=== PATIENT | female | born 1975 | race Caucasian/White ===

== ENCOUNTER 2020-09-04 12:36 | Outpatient (CLI) | payer OTHER, SELFPAY ==
--- NOTE | 2020-09-04 | DI.US_ITS ---
EXAM: US PELVIS TRANSVAGINAL CLINICAL HISTORY: MIRENA IUD PLACEMENT 2013, UNABLE TO FIND STRINGS, CHECK IUD TECHNIQUE: Pelvic ultrasound was performed utilizing transabdominal and transvaginal scanning. COMPARISON: No exams were available for comparison FINDINGS: The uterus measures 7.4 x 4.8 x 5.4 cm in the in diameter. There is an IUD in place in the uterine f undus. No direct measurement endometrial stripe obtained. The left ovary is nonvisualized. Right ovary measures 24 x 20 x 24 millimeters in diameter and has a normal follicular appearance. No free fluid identified in the cul-de-sac. Limited scanning of the kidneys is unremarkable. IMPRESSION: IUD in place in the endometrial cavity. No significant abnormal findings. Left ovary nonvisualized. RADIATION DOSE DELIVERED: Total DLP
== END 2020-09-04 12:56 ==
PROVIDERS: Visit Provider Nurse Practitioner
DX: T83.32XA Displacement of intrauterine contraceptive device, initial encounter (principal)
CPT/HCPCS: 76830; 76856

== ENCOUNTER 2022-07-27 17:41 | Outpatient (REF) | payer OTHER, SELFPAY ==
[2022-07-27 21:37] LABS: Abs Immature Grans 0.01 10^3/uL (0.0-0.06); Absolute Basophil Count 0.04 10^3/uL (0.0-0.2); Absolute Eosinophil Count 0.12 10^3/uL (0.0-0.7); Absolute Lymphocyte Count 3.12 10^3/uL (1.2-3.4); Absolute Monocyte Count 0.58 10^3/uL (0.1-0.8); Absolute Neutrophil Count 4.04 10^3/uL (1.2-6.7); Basophils % 0.5; Eosinophils % 1.5; HCT 40.8 % (36.0-46.0); HGB 13.7 g/dL (11.2-15.7); Immature Grans % 0.1; Lymphocytes % 39.4; MCH 30.7 pg (27.0-33.0); MCHC 33.6 % (32.0-36.0); MCV 92 fL (80-95); MPV 10.8 fL (8.0-11.0); Monocytes % 7.3; Neutrophils % 51.2; Platelet Count 289 10^3/uL (130-400); RBC 4.46 10^6/uL (3.93-5.22); RDW 12.6 % (11.7-14.6); RDW-SD 42.6 fL; WBC 7.91 10^3/uL (4.4-10.8)
[2022-07-27 22:24] LABS: ALT 22 U/L (14-59); AST 23 U/L (15-37); Albumin 3.5 g/dL (3.4-5.0); Alkaline Phosphatase 84 U/L (46-116); Anion Gap 5.7 mmol/L (3-11); BUN 15 mg/dL (7-18); Bilirubin, Total 0.2 mg/dL (0.2-1.0); CO2 27.3 mmol/L (21.0-32.0); CREATININE 0.6 mg/dL (0.55-1.02); Calcium 8.8 mg/dL (8.5-10.1); Calculated LDL 112 mg/dL (<100); Chloride 106 mmol/L (98-107); Cholesterol 188 mg/dL (<200); Estimated GFR 112.04 (mL/min/1.73m2); Glucose 97 mg/dL (74-106); HDL Cholesterol 66 mg/dL (40-60); Potassium 3.9 mmol/L (3.5-5.1); Sodium 139 mmol/L (136-145); TSH (W/Ref FT4) 1.38 uIU/mL (0.36-3.74); Total Protein 7.1 g/dL (6.4-8.2); Triglyceride 52 mg/dL (<150)
[2022-07-27 22:41] LABS: Hemoglobin A1C 4.9 % (<5.7)
== END 2022-07-27 17:42 | disposition home or self-care (01) ==
LOC: NCHCN 17:41
PROVIDERS: Visit Provider Nurse Practitioner Family
DX: Z00.00 Encounter for general adult medical examination without abnormal findings (principal); Z13.29 Encounter for screening for other suspected endocrine disorder; Z13.0 Encounter for screening for diseases of the blood and blood-forming organs and certain disorders involving the immune mechanism; Z13.220 Encounter for screening for lipoid disorders; Z13.228 Encounter for screening for other metabolic disorders; Z13.1 Encounter for screening for diabetes mellitus
CPT/HCPCS: 80053; 80061; 83036; 84443; 85025

== ENCOUNTER 2023-03-22 03:45 | Outpatient (CLI) | payer OTHER, SELFPAY ==
--- NOTE | 2023-03-22 | DI.MAMMO_ITS ---
Exam(s) MAMMO SCREENING EXAM: MAMMO SCREENING CLINICAL HISTORY: SCREENING MAMMO FOR BREAST CANCER Z12.31 TECHNIQUE: Bilateral full field digital CC and MLO mammographic images were obtained with 3D tomosyn thesis and utilizing computer aided detection (CAD). COMPARISON: There are no priors for comparison. FINDINGS: Masses/Architectural Distortion: None seen. Status post bilateral breast reduction Microcalcifications: No suspicious pleomorphic-type are seen. There is a large benign type coarse isabel cification in the right breast. Skin Thickening/Nipple Retraction: None. IMPRESSION: 1. No significant interval change with no specific features of malignancy noted. 2. Unless there is more urgent need, screening mammography is recommended, as per [employer] guidelines. BI-RADS Category 1 - Negative Breast Density - Category A - Almost entirely fatty Breast density category C or D implies that the patient has dense breast tissue. Dense breast tissue is very common and is not abnormal but dense breast tissue can make it harder to find cancer on a ma mmogram. Also, dense breast tissue may increase their breast cancer risk. This information about the result of the mammogram report was provided to the patient to raise their awareness. Use this report when you speak with the patient about their risks for breast cancer, which includes their family hist ory. At that time, you may recommend for more screening tests (Ultrasound or MRI) as they might be us eful based on their risk. A negative radiographic report should not delay biopsy if a dominant or clinically suspicious mass is present. Up to ten percent of cancers are not identified on mammography. A negative report may reinforce clinical impression. Adenosis and dense breasts may obscure an underlying neoplasm. False positive reports average 6 to 10%. Patient will receive a letter notifying them of these results.
== END 2023-03-22 04:05 ==
PROVIDERS: Visit Provider Nurse Practitioner Family
DX: Z12.31 Encounter for screening mammogram for malignant neoplasm of breast (principal)
CPT/HCPCS: 77063; 77067

== ENCOUNTER 2023-03-29 08:38 | Emergency (ER) | payer OTHER, SELFPAY ==
[2023-03-29 08:41] VITALS: BP 153/83; PULSE 88; RESP 16; TEMP 36.9; O2SAT 98
--- NOTE | 2023-03-29 08:57 | W.ED.GENAD ---
Discharge Plan Disposition Patient Disposition: Home Condition: Stable Discharge Details Clinical Impression: Exposure to bat without known bite, Need for rabies vaccination Primary Care Provider: Unknown,Unknown ED Provider: Rajinder Sim Home Meds and New Rx's Prescriptions: Continued valacyclovir 500 mg tablet 500 mg PO DAILY multivitamin with iron [Daily Multiple Vitamins/Iron] Tablet 1 tab PO DAILY Kyleena 17.5 mcg/24 hrs (5 yrs) 19.5 mg intrauterine device 1 device intrauterine ONCE Rx Instructions: as a single dose Vyvanse 30 mg Capsule 30 mg PO DAILY Discontinued dextroamphetamine-amphetamine [Adderall] 5 mg tablet 5 mg PO DAILY Patient Comments: no longer taking 03/29/23 Discharge Instructions Instructions: Rabies Vaccine (By injection), Rabies Immune Globulin (By injection) Additional Instructions: Please return to the hospital for repeat vaccination on 04/01/2023, 04/05/2023, and 04/12/2023 Medical Decision Making 47yo female here with concern for bat scratch. No obvious break in skin. Will treat prophylactically for rabies. Patient provided informed consent to treat. Outpatient followup orders for rabies vaccination ordered to expedite care. HPI General Mode of arrival: ambulatory. Date/Time Provider Initiated Documentation: 03/29/23 08:50. Limitations to Documentation: no limitations. Information obtained by: patient. HPI Narrative: 47yo female here with concern for bat scratch. Patient notes that bat was in her house this am and attached to her left ankle around 6:30a. No known bite. Related Data Home Medications Medication Instructions Recorded Confirmed multivitamin with iron (Daily 1 tab PO DAILY 11/01/20 03/29/23 Multiple Vitamins with Iron tablet) valacyclovir 500 mg tablet 500 mg PO DAILY 11/01/20 03/29/23 levonorgestrel 17.5 mcg/24 hrs 1 device intrauterine ONCE 08/04/22 03/29/23 (5yrs) 19.5mg intrauterine device (Kyleena) lisdexamfetamine 30 mg capsule 30 mg PO DAILY 03/29/23 03/29/23 (Vyvanse) Allergies Allergy/AdvReac Type Severity Reaction Status Date / Time sertraline Allergy Unknown Verified 08/04/22 08:32 adhesive AdvReac Itching Unverified 03/29/23 08:44 General Stated Complaint: AnimalBite YOLI: 3 Review of Systems Narrative: as per hpi PFSH All Active Problems Exposure to bat without known bite (Acute) Need for rabies vaccination (Acute) Screening for colon cancer (Acute) Obesity (Chronic) Depression (Chronic) ADHD (Acute) History of eating disorder (Acute) Treated for bulimia with excellent results. History of endometritis (Acute) Hx of menorrhagia with Mirena IUD in place. 09/2020 EMBx:endometritis. Rx with Abx. IUD (intrauterine device) in place (Acute) 10/2020. Mirena removed. New Mirena placed. Surgical History H/O breast surgery History of appendectomy Family History Mother , Acute myeloid leukemia No problems noted. Other Heart disease Hyperlipidemia Hypertension Social History Smoking/Tobacco Use Status: Never Smoking risk assessment performed?: Yes Alcohol Intake: current Alcohol Intake frequency: holidays/special occasions only Drug use: Occasionally Substance use type: marijuana Details: edible marijuana 1-2 times a month. 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 What is your relationship status?: living with partner Panel score (0-1 are the most socially isolated patients): 1 Do you feel safe at home: Yes Do you feel safe in your relationship?: Yes Female Reproductive History Menstrual control method: progestin IUCD History History 1 Para 1 Hx # Term Pregnancies Multiple births Hx # Pregnancies Ectopic pregnancies AB induced Hx Number of Living Children 1 AB spontaneous Exam Const General: cooperative and no acute distress Skin General skin exam: no rashes or lesions noted Other: no visible break in skin left ankle Course Vital Signs Vital signs: Vital Signs Temperature 36.9 C 03/29/23 08:41 Pulse 88 03/29/23 08:41 Respiratory Rate 16 03/29/23 08:41 Blood Pressure 153/83 H 03/29/23 08:41 Pulse Oximetry 98 03/29/23 08:41 Temperature 36.9 C 03/29/23 08:41 Temperature Source Skin 03/29/23 08:41 Pulse 88 03/29/23 08:41 Respiratory Rate 16 03/29/23 08:41 Respiratory Effort Normal, Non-Labored 03/29/23 08:46 Blood Pressure 153/83 H 03/29/23 08:41 Blood Pressure Position Sitting 03/29/23 08:41 Pulse Oximetry 98 03/29/23 08:41 Oxygen Delivery Method Room Air 03/29/23 08:41 Oxygen Flow Rate 0 03/29/23 08:41 Pain Level 0 03/29/23 08:41
--- NOTE | 2023-03-29 09:07 | NUR.NOTE ---
Nursing Note: Animal bite report form faxed to [facility]. Message left for [place] health officer regarding report. Future rabies vaccination orders have been faxed to the Infusion dept.
[2023-03-29] MEDS: Rabies Immune Globulin 1,500 UNIT/5 ML VIAL 2086.52 UNITS IM (09:36)
[2023-03-29 09:51] VITALS: BP 138/91; PULSE 75; RESP 18; O2SAT 98
== END 2023-03-29 09:55 | disposition home or self-care (01) ==
PROVIDERS: Emergency Provider Student in an Organized Health Care Education/Training Program
DX: Z20.3 Contact with and (suspected) exposure to rabies (principal)
CPT/HCPCS: 90471; 96372; 99284; 90675

== ENCOUNTER 2023-04-05 01:57 | Outpatient (RCR) | payer OTHER, SELFPAY | END 2023-04-05 23:59 | disposition home or self-care (01) | LOC: INF 01:57 | PROVIDERS: PCP Nurse Practitioner Family; Visit Provider Student in an Organized Health Care Education/Training Program | DX: Z20.3 Contact with and (suspected) exposure to rabies (principal) | CPT/HCPCS: 90471; 96372; 90675 ==

== ENCOUNTER 2023-04-12 02:24 | Outpatient (RCR) | payer OTHER, SELFPAY | END 2023-05-06 23:59 | disposition home or self-care (01) | LOC: INF 02:24 | PROVIDERS: PCP Nurse Practitioner Family; Visit Provider Student in an Organized Health Care Education/Training Program | DX: Z29.14 Encounter for prophylactic rabies immune globulin (principal) | CPT/HCPCS: 96372; 90675 ==

== ENCOUNTER 2023-05-21 06:06 | Day surgery (SDC) | payer OTHER, SELFPAY ==
--- NOTE | 2023-05-20 22:18 | HPE_ITS ---
Date of service: 05/21/23 Time of Service: 07:33 Assessment and Plan Assessment and plan (1) History of endometritis: Status: Acute (2) History of eating disorder: Status: Acute (3) ADHD: Status: Acute (4) Depression: Status: Chronic (5) Obesity: Status: Chronic (6) Screening for colon cancer: Status: Acute Assessment and plan: Informed consent is obtained for the procedural (explained in simple layman's terms that the pt. and/or family could understand) explaining risks vs benefits and alternatives to the procedure and consequences if we do not do the procedure and need/rational for the procedure. Risks include but are not limited to: bleeding, infection, perforation of esophagus, stomach, colon, small intestines. This would necessitate emergency surgery to repair the damage w/ possible ostomy; and other associated complications w/ the required surgery. Also complications of anesthesia including aspiration, NC/CVA/. History of Present Illness Narrative: Office note This 05/21/23 Patient is here today for colonoscopy for colorectal cancer screening.??? They completed a bowel prep with just a clear yellow residual effluent.? They not having any chest pain or shortness of breath, currently.? They are not experiencing any fever or chills.? They deny any productive cough or upper respiratory tract infection signs or symptoms.? They are not having abdominal pain, or nausea and vomiting.? They have not had any changes in medications, past medical history or past surgical history since previously being seen in the office. They have not had any accidents or have been in the ER since the clinic pre-operative evaluation. ??I reviewed the procedure with the patient today, including risks and benefits of the procedure, and what they could expect at home for recovery.? All questions are answered to the patient?s satisfaction today, and they are stable to proceed with the proposed procedure. Office visit 04/01/2023: (1) Encounter for screening colonoscopy: The patient is here for Colonoscopy pre-op.? She denies having any family history of colon cancer. She has not had any bowel habit changes. -Discussed colonoscopy bowel prep as well as the procedure. Discussed possible complications of the procedure to include bleeding, pain, perforation, missed small lesion/polyp, sore throat, aspiration and adverse reaction to the medications. Questions were answered to patient?s satisfaction. No guarantees were implied or given.? Anesthesia: general (without airway) Previous surgical intolerances: None Previous surgical complications: None Pulmonary risk factors:? None PFT's: None Planned procedure: Yes Sleep apnea risks: No Can climb one flight of stairs (12-13 steps) in less than 30 seconds without stopping and without symptoms: Yes The surgery proposed for this patient is: Low risk Active cardiac conditions: None ECHO: None Stress Test: None Active risk factors: None ASA (acetylsalicylic acid):No Beta blockers: No Anti-coagulation:? N/A Medications to be held: N/A Patient is currently receiving rabies vaccinations following possible that late.? This will need to be completed prior to proceeding with screening colonoscopy.? We will schedule her colonoscopy for at least 1 month after her last vaccination. It was 47 y/o female with history of ADHD, depression and obesity presents for colonoscopy screening pre-op. She denies a family history of colon cancer. She denies any changes in bowel habits including bloody or black tarry stools, abdominal pain, diarrhea or constipation. She denies constitutional symptoms.? She denies chest pain, palpitations, dyspnea or dyspnea with exertion. She denies prior history or family history of adverse reactions or complications with anesthesia. The patient denies any history of stroke, NC, seizures, bleeding or clotting disorders. She denies having any implanted metal in her body. 70 Review of Systems All systems reviewed & are unremarkable except as noted in HPI and below PFSH All Active Problems Screening for malignant neoplasm of colon performed (Acute) IUD (intrauterine device) in place (Acute) 10/2020. Mirena removed. New Mirena placed. History of endometritis (Acute) Hx of menorrhagia with Mirena IUD in place. 09/2020 EMBx:endometritis. Rx with Abx. History of eating disorder (Acute) Treated for bulimia with excellent results. ADHD (Acute) Depression (Chronic) Obesity (Chronic) Screening for colon cancer (Acute) Medical History History of cold sores Surgical History H/O breast surgery History of appendectomy Hx of eye surgery Per pt. statesshe has muscle realignment surgery in 1988 Family History Mother , Acute myeloid leukemia No problems noted. Other Heart disease Hyperlipidemia Hypertension Social History Smoking/Tobacco Use Status: Never Smoking risk assessment performed?: Yes Alcohol Intake: current Alcohol Intake frequency: holidays/special occasions only Drug use: Occasionally Substance use type: marijuana Details: edible marijuana 1-2 times a month. 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 What is your relationship status?: living with partner Panel score (0-1 are the most socially isolated patients): 1 Do you feel safe at home: Yes Do you feel safe in your relationship?: Yes Female Reproductive History Menstrual control method: progestin IUCD History History 1 Para 1 Hx # Term Pregnancies Multiple births Hx # Pregnancies Ectopic pregnancies AB induced Hx Number of Living Children 1 AB spontaneous Meds Allergies and Home Medications Allergies Allergy/AdvReac Type Severity Reaction Status Date / Time sertraline Allergy Unknown Manic state Verified 05/21/23 07:29 adhesive AdvReac Intermediate Itching Verified 05/21/23 06:31 Home Medications Medication Instructions Recorded Confirmed Type multivitamin with iron (Daily 1 tab PO DAILY 11/01/20 05/21/23 History Multiple Vitamins with Iron tablet) valacyclovir 500 mg tablet 500 mg PO DAILY 11/01/20 05/21/23 History levonorgestrel 17.5 mcg/24 hrs 1 device intrauterine ONCE 08/04/22 05/19/23 History (5yrs) 19.5mg intrauterine device (Kyleena) lisdexamfetamine 30 mg capsule 30 mg PO DAILY 03/29/23 05/21/23 History (Vyvanse) acetylcysteine 600 mg capsule (NAC) 1,200 mg PO BID 05/19/23 05/21/23 History Exam Narrative Exam Narrative: PHYSICAL EXAM GENERAL APPEARANCE: Alert, healthy appearance, oriented, x 3,? in no acute distress HYDRATION: Well hydrated HEAD, EYES, EARS, NECK, THROAT: Head is normocephalic, pupils equal, round, reactive to light and accommodation, ocular movement intact, sclera clear and no jaundice. ?Dentition intact. LUNGS: normal respiration/normal chest excursion. ?Clear to auscultation bilaterally. ?No wheeze. ?HEART: Regular rate and rhythm. no murmurs ABDOMEN: soft and non-tender to palpation.? Normal bowel sounds.? Time Spent Time spent with Patient: <40 minutes Time was spent: preparing to see the patient(eg.review tests), obtaining and/or reviewing separately otained hiistory, ordering medications,tests, procedures, referring, communicating with other health long term care administrator, indepentently interpreting results, counseling the patient and care coordination
--- NOTE | 2023-05-20 22:25 | W.COLOREPORT ---
Date of service: 05/21/23 Time of Service: 08:51 Colonoscopy Report Date of procedure: 05/21/23 Pre-op diagnosis general: Colorectal cancer screening Post-op diagnosis procedure note: other (Minor diverticula and large polyp.) Surgeon: Michelle Rodriguez Anesthesia Type: General:No Airway Estimated blood loss (mL): 1 Pathology: other Complications: None Disposition: same day Prep: Miralax/Dulcolax Retraction Time: 9 Procedure Description: After informed consent was obtained the patient was taken to the procedure room and placed in a left decubitous position. Monitors were applied and a time out was done. The patients name, date of , procedure, allergies to medications and metal in their body was reviewed. The patient was then sedated. Once sedated and comfortable a rectal exam was done. External exam was normal. Internal exam revealed a normal sphincter tone and no palpable masses. The scope was then introduced and retrofelexed. No without internal hemorrhoids were identified. The scope was then advanced to the cecum BBPS 3 in all segments for a total of 9 difficulty. The TI and appendiceal orifice were identified. The prep was . The scope was then slowly retracted over 9 minutes back into the rectum. Polyps were removed at she had a 1 cm pedunculated polyp at 30 cm. This is removed with a cold snare. A clip was placed across the defect. She has minor diverticula confined to the sigmoid colon. There are very few small mouth diverticula. There are no signs of active bleeding or infection. The mucosa is pink and healthy with a normal vascular pattern. The scope was removed and the patient was woken up and taken back to Same day surgery in stable condition. The patient tolerated the procedure well and there were no immediate complications. Follow up: The patient should follow up in 3 years path pending, unless they develop changes in bowel habits or other new gastrointestinal complaints.
--- NOTE | 2023-05-20 22:26 | PDOC.DSDIS_ITS ---
Date of service: 05/21/23 Time of Service: 08:18 Discharge Plan Disposition Patient Disposition: Home Condition: Good Discharge Details Reason For Visit: Colon cancer screening Attending Provider: Michelle Rodriguez Primary Care Provider: Pertona Kingsley Home Meds and New Rx's Prescriptions: Continued valacyclovir 500 mg tablet 500 mg PO DAILY multivitamin with iron [Daily Multiple Vitamins/Iron] Tablet 1 tab PO DAILY Kyleena 17.5 mcg/24 hrs (5 yrs) 19.5 mg intrauterine device 1 device intrauterine ONCE Rx Instructions: as a single dose lisdexamfetamine [Vyvanse] 30 mg Capsule 30 mg PO DAILY acetylcysteine [NAC] 600 mg capsule 1,200 mg PO BID Patient Comments: TAKE 2 CAPSULES BY MOUTH EVERY MORNING AND 2 CAPSULES IN THE AFTERNOON/EARLY EVENING NEEDED FOR MOOD Discontinued bisacodyl 5 mg tablet,delayed release (DR/EC) 5 mg PO ONCE Qty: 4 0RF Rx Instructions: Per Colonoscopy bowel prep instructions polyethylene glycol 3350 17 gram/dose powder 238 g PO ONCE Qty: 238 0RF Rx Instructions: For Colonoscopy bowel prep, as directed by office Discharge Instructions Additional Instructions: DSU Colonoscopy Post- Op Instructions Instructions for Everyone who is given Anesthesia: For your safety, please do the following for the next twenty-four (24) hours: *Do Not operate a motor vehicle (car, truck, motorcycle, etc.) *Do Not drink alcoholic beverages or use any recreational drugs for the first 24 hours or while taking pain medications. The medications in your body may have a reaction that can be dangerous. *Do Not make any important decisions or sign any important papers. Findings: large colon polyps minor diverticula-make sure you are moving your bowels on a regular basis and not straining to go to the bathroom. If you find that you are having issues with constipation or irregularity, recommend you start a fiber supplement. Follow up: my office will send a letter in 2-3 wks time. My most likely repeat in 3 yrs 1. No lifting over 20 pounds or strenuous activity for the first 24 hours after your procedure. After 24 hours there are no restrictions on your activity but you may feel fatigued for a few days. 2. After you arrive home you may have a light meal and return to your normal diet as you can tolerate it without feeling sick to your stomach. 3. You may have a bloated, gaseous feeling in your belly (abdomen) after a colonoscopy. Passing gas and belching will help. Walking or lying down on your left side with your knees flexed may relieve the discomfort. Call the office at [phone] (Office) or [phone] (Hospital) right away if you notice any of the following: a.Vomiting of blood or ?coffee ground stools?. b.Rectal bleeding 1Tbsp, blood clots or continuous bleeding. c.Severe belly (abdominal) pain. d.A hard distended belly (abdomen) and an inability to pass gas. 4. Please don?t expect to have a normal BM (bowel movement) for 2-3 days after your procedure. 5. If there are questions regarding the findings of your procedure, please contact your doctor 6. If you are unable to contact your doctor with a problem, contact the hospital at [phone]. 7. Continue all your regular medications unless directed otherwise. I understand the above instructions and have no questions. Signature of Patient or Adult Escort Name of Responsible Adult Escort Signature of Nurse Date/Time Activity:: See above Diet:: See above Discharge Orders Discharge Orders: Discharge Order (Routine); Ordered 05/21/23 Ordered By: Michelle Rodriguez DS: Diagnosis Discharge Diagnosis (1) History of endometritis: Status: Acute (2) History of eating disorder: Status: Acute (3) ADHD: Status: Acute (4) Depression: Status: Chronic (5) Obesity: Status: Chronic (6) Screening for colon cancer: Status: Acute (7) Screening for malignant neoplasm of colon performed: Status: Acute Asessment and Plan: [facility] Note/Eval The patient is seen and examined after their colonoscopy.? The patient has been able to pass gas.? They are not having abdominal pain.? They have been able to tolerate liquids and a snack.? They do not have any nausea or vomiting.? They are not having any chest pain or shortness of breath.??? They are not having any rectal bleeding. Their vital signs have been stable-see nursing notes. We discussed findings during their colonoscopy, and any biopsies that were done/polyps that were removed. The patient will be sent a letter with any biopsy results, and when to repeat the colonoscopy.-see discharge instructions. Patient was given explicit instructions to follow-up regarding colonoscopy-refer to discharge instructions.? We reviewed resumption of medications. Patient verbalized understanding and discharged in stable and satisfactory condition- See nursing notes. (8) Adenomatous polyps: Status: Acute
[2023-05-21 06:25] VITALS: BP 124/80; PULSE 78; RESP 17; TEMP 36.6; O2SAT 95
[2023-05-21] MEDS: Lactated Ringers 1,000 ML 80 ML IV (06:41)
--- NOTE | 2023-05-21 06:57 | W.ANESPRE ---
General Info Date of Service Date Performed: 05/21/23 Height: 5 ft 7 in Weight: 105.3 kg Body Mass Index (BMI): 36.3 Surgical Procedure: Operation Date: 05/21/23 07:35 Proposed Procedure Side Surgeon birdie Rodriguez, DO Meds Allergies and Home Medications Allergies Allergy/AdvReac Type Severity Reaction Status Date / Time sertraline Allergy Unknown Verified 05/21/23 06:31 adhesive AdvReac Intermediate Itching Verified 05/21/23 06:31 Home Medication Medication Instructions Recorded multivitamin with iron (Daily 1 tab PO DAILY 11/01/20 Multiple Vitamins with Iron tablet) valacyclovir 500 mg tablet 500 mg PO DAILY 11/01/20 levonorgestrel 17.5 mcg/24 hrs 1 device intrauterine ONCE 08/04/22 (5yrs) 19.5mg intrauterine device (Kyleena) lisdexamfetamine 30 mg capsule 30 mg PO DAILY 03/29/23 (Vyvanse) acetylcysteine 600 mg capsule (NAC) 1,200 mg PO BID 05/19/23 Current Visit Medications: Current Medications Generic Name Dose Route Start Last Admin Trade Name Freq PRN Reason Stop Dose Admin Hyoscyamine Sulfate 0.125 mg 05/21/23 09:26 Hyoscyamine 0.125 Mg Sl/Oral/Chew SL 06/20/23 09:25 DIRECTED PRN Ringer's Solution 1,000 mls @ 80 mls/hr 05/21/23 06:00 05/21/23 06:41 IV 05/21/23 23:59 80 mls/hr INFUSION JUAN MANUEL Administration IV Miscellaneous Supplies 1 each 05/21/23 06:00 Iv Access IV 05/21/23 23:59 DIRECTED JUAN MANUEL Ondansetron HCl 4 mg 05/21/23 09:26 Ondansetron 4 Mg/2 Ml Vial IVP 06/20/23 09:25 Q4H PRN PRN Nausea / Vomiting Sodium Chloride 0 ml 05/21/23 06:00 Normal Saline Flush 10 Ml Syr IV 05/21/23 23:59 PRN PRN Sodium Chloride 0 ml 05/21/23 06:00 Normal Saline 10 Ml Vial IJ 05/21/23 23:59 DIRECTED PRN Sterile Water 0 ml 05/21/23 06:00 Water,Injection,Sterile 10 Ml Vial IJ 05/21/23 23:59 DIRECTED PRN PFSH Active Problems Active Problems: Problem Status Onset Code Screening for malignant neoplasm of colon performed Z12.11 IUD (intrauterine device) in place Z97.5 History of endometritis Z87.42 History of eating disorder Z86.59 ADHD F90.9 Depression F32.A Obesity E66.9 Screening for colon cancer Z12.11 Medical History Medical History History of cold sores Surgical History Surgical History H/O breast surgery History of appendectomy Hx of eye surgery Per pt. jacinto has muscle realignment surgery in 1988 Tobacco Smoking/Tobacco Use Status: Never Alcohol Alcohol Intake: current Alcohol intake frequency: holidays/special occasions only Substance Use Substance use: Occasionally Substance use type: marijuana Details: edible marijuana 1-2 times a month. pt used last time -last week Prental History History 1 Para 1 Hx # Term Pregnancies Multiple births Hx # Pregnancies Ectopic pregnancies AB induced Hx Number of Living Children 1 AB spontaneous Vital Signs and Lab Results Vital Signs Most Recent Vital Signs in EMR: Most Recent Vital Signs Temp Pulse Resp BP Pulse Ox 36.6 C 78 17 124/80 95 05/21/23 06:25 05/21/23 06:25 05/21/23 06:25 05/21/23 06:25 05/21/23 06:25 Point of Care Results Point of Care Results: POC- Test(urine) Negative 05/21/23 06:33 Lab Results Blood Type / Crossmatch: No Data to Display Complete Blood Count: No Data to Display Complete Metabolic Panel: No Data to Display Liver Function Panel: No Data to Display Coagulation Panel: No Data to Display Cardiac Panel: No Data to Display Arterial Blood Gas: No Data to Display Venous Blood Gas: No Data to Display Pancreas Panel: No Data to Display Thyroid Panel: No Data to Display Infectious Disease: No Data to Display Blood Cultures: No Data to Display Toxicology Panel: No Data to Display Panel: No Data to Display Anesthesia Assessment and Plan Anesthesia History Personal History: No History of Anesthesia Complications Family History: No Family History of Anesthesia Complications Exercise Tolerance Exercise Tolerance: Metabolic Equivalents<4 Pertinent Negatives Pertinent Negatives: No Symptoms of GERD Cardiac & Pulmonary Exam Cardiac Exam: Normal S1/S2 Heart Sounds Pulmonary Exam: Clear Bilateral Breath Sounds Implantable Cardiac Device Does patient have a Pacemaker or an ICD?: No Airway Exam Known Difficult Airway: No Mallampati Class: 2 Mouth Opening: Normal (> 3cm) Thyromental Distance: Greater than 3 cm Neck Range of Motion: Full ROM Neck Circumference: Normal Teeth Condition: Normal Dentition ASA Classification ASA Score: ASA 2 Emergency Case?: No NPO Status NPO Status: NPO Clears >2 hours, Solids >8 hours Status Status: Not Relevant due to Medical History Anesthesia Plan Resuscitation Status: Full Code Anesthesia Technique: General Anesthesia Airway Planned: Natural Airway Monitors Used: Standard Monitors
[2023-05-21 06:58] VITALS: BMI 36.3
--- NOTE | 2023-05-21 07:50 | BOWEL_PTH ---
PATIENT: Juli Sandoval LOC: [facility] U#:[id number] AGE/SX: 47/F ROOM: RE05/21/[address]: Michelle Rodriguez : 1975 BED: DIS: 05/21/2023 SPEC #: [id number] RECD: 05/21/23 12:36 STATUS: [facility] #: [id number] ZEN: 05/21/23 07:[address]: Michelle Rodriguez DEPT: Surgical Specimen RECD BY: Jinny Rodgers ENTERED: 05/21/23 12:37 SP TYPE: Bowel OTHR DR: Petrona Kingsley Tissues: 1 - BIOPSY BOWEL Procedures: GROSS AND MICRO LEVEL 4 Comments: [id number]
[2023-05-21 08:05] VITALS: BP 116/76; PULSE 76; RESP 22; TEMP 36; O2SAT 98
[2023-05-21 08:35] VITALS: BP 126/77; PULSE 55; RESP 18; TEMP 36.1; O2SAT 100
--- NOTE | 2023-05-21 08:58 | W.ANESPOSTOP ---
Postoperative Evaluation Date, Time and Location Date Performed: 05/21/23 Time Performed: 08:58 Patient Location: Day Surgery Unit Vital Signs Most Recent Imported Vital Signs: Most Recent Vital Signs Temp Pulse Resp BP Pulse Ox 36.1 C L 55 L 18 126/77 100 05/21/23 08:35 05/21/23 08:35 05/21/23 08:35 05/21/23 08:35 05/21/23 08:35 Pain Score Most Recent Pain Score: Most Recent Pain Score Pain Level 0 05/21/23 08:35 Assessment Mental Status: Awake (Alert & Oriented to Patient Baseline) Airway and Respiratory Function: Patent airway with normal (patient baseline) respiratory exam Cardiovascular Function: Hemodynamically Stable Hydration Status: Adequately Hydrated Nausea & Vomiting: No Nausea or Vomiting Pain: Pt. Denies Any Pain Peripheral Nerve Block: Patient did not receive a nerve block
== END 2023-05-21 10:10 | disposition home or self-care (01) ==
PROVIDERS: PCP Nurse Practitioner Family; Visit Provider Surgery
PROC: 0DJD8ZZ Inspection of Lower Intestinal Tract, Via Natural or Artificial Opening Endoscopic (ICD-10-PCS; CPT 45378; principal; 2023-05-21 07:30)
DX: Z12.11 Encounter for screening for malignant neoplasm of colon (principal); D37.4 Neoplasm of uncertain behavior of colon; K57.30 Diverticulosis of large intestine without perforation or abscess without bleeding; E66.9 Obesity, unspecified; Z68.36 Body mass index [BMI] 36.0-36.9, adult
CPT/HCPCS: 45385; 81025; 88305

== ENCOUNTER 2023-11-26 15:27 | Outpatient (REF) | payer OTHER, SELFPAY ==
[2023-11-26 21:30] LABS: TSH 1.34 uIU/Ml (0.36-3.74)
== END 2023-11-26 15:28 | disposition home or self-care (01) ==
LOC: NCHCN 15:27
PROVIDERS: PCP Nurse Practitioner Family; Visit Provider Family Medicine
DX: R63.5 Abnormal weight gain (principal)
CPT/HCPCS: 84443

== ENCOUNTER 2024-08-01 01:35 | Outpatient (CLI) | payer OTHER, SELFPAY ==
--- NOTE | 2024-08-01 | DI.MAMMO_ITS ---
Exam(s) MAMMO SCREENING EXAM: MAMMO SCREENING CLINICAL HISTORY: SCREENING,Z12.31 TECHNIQUE: Bilateral full field digital CC and MLO mammographic images were obtained with 3D tomosyn thesis and utilizing computer aided detection (CAD). COMPARISON: Available for comparison. FINDINGS: Masses/Architectural Distortion: The patient is status post breast reduction surgery. No suspicious masses are seen. No suspicious areas of architectural distortion are present. Microcalcifications: No suspicious pleomorphic-type are seen. Stable benign type calcifications are s een in both breasts. Skin Thickening/Nipple Retraction: None. IMPRESSION: 1. No significant interval change with no specific features of malignancy noted. 2. Unless there is more urgent need, screening mammography is recommended, as per [place] [employer] guidelines. BI-RADS Category 1 - Negative Breast Density - Category A - Almost entirely fatty Breast density category C or D implies that the patient has dense breast tissue. Dense breast tissue is very common and is not abnormal but dense breast tissue can make it harder to find cancer on a ma mmogram. Also, dense breast tissue may increase their breast cancer risk. This information about the result of the mammogram report was provided to the patient to raise their awareness. Use this report when you speak with the patient about their risks for breast cancer, which includes their family hist ory. At that time, you may recommend for more screening tests (Ultrasound or MRI) as they might be us eful based on their risk. A negative radiographic report should not delay biopsy if a dominant or clinically suspicious mass is present. Up to ten percent of cancers are not identified on mammography. A negative report may reinforce clinical impression. Adenosis and dense breasts may obscure an underlying neoplasm. False positive reports average 6 to 10%. Patient will receive a letter notifying them of these results.
== END 2024-08-01 01:55 ==
LOC: DI 01:35
PROVIDERS: PCP Nurse Practitioner Family; Visit Provider Family Medicine
DX: Z12.31 Encounter for screening mammogram for malignant neoplasm of breast (principal); R92.313 Mammographic fatty tissue density, bilateral breasts
CPT/HCPCS: 77063; 77067

== ENCOUNTER 2024-12-19 13:41 | Outpatient (REF) | payer OTHER, SELFPAY ==
--- NOTE | 2024-12-19 13:30 | PAPFT_PTH ---
PATIENT: Juli Sandoval [facility] U[id number] AGE/SX: 49/F ROOM: RE12/19/[address]: LAURENCE: 1975 BED: DIS: 12/19/2024 SPEC #: [id number] RECD: 12/20/24 13:01 STATUS: [facility] #: [id number] ZEN: 12/19/24 13:[address]: Annmarie Morales DEPT: [facility] Cytology RECD BY: Jinny Rodgers ENTERED: 12/20/24 13:01 SP TYPE: PAPFT OTHR DR: Petrona Kingsley Tissues: 1 - CX/ENDOCX FOR PAP SMEARS Procedures: PAP THIN PREP/[facility] Screening HPV DNA PROBE Comments: [id number] (HPV 16 & 18/45)
[2024-12-19 21:49] LABS: Calculated LDL 129 mg/dL (<100); Cholesterol 198 mg/dL (<200); HDL Cholesterol 58 mg/dL (>or=50); TSH (W/Ref FT4) 1.36 uIU/mL (0.36-3.74); Triglyceride 59 mg/dL (<150)
== END 2024-12-19 13:42 | disposition home or self-care (01) ==
LOC: NCHCN 13:41
PROVIDERS: PCP Nurse Practitioner Family; Visit Provider Family Medicine
DX: L65.9 Nonscarring hair loss, unspecified (principal); Z13.220 Encounter for screening for lipoid disorders
CPT/HCPCS: 80061; 88142; 84443; 87624

== ENCOUNTER → 2025-08-27 00:59 | Outpatient (CLI) | payer OTHER, SELFPAY ==
--- NOTE | 2025-08-27 | DI.MAMMO_ITS ---
Exam(s) MAMMO SCREENING EXAM: MAMMO SCREENING CLINICAL HISTORY: SCREENING,Z12.31. TECHNIQUE: Bilateral full field digital CC and MLO mammographic images were obtained with 3D tomosynthesis and utilizing computer aided detection (CAD). COMPARISON: Prior mammograms were reviewed. Patient has had prior bilateral reduction surgery. FINDINGS: There has been no significant change in the appearance and distribution of the fibroglandular tissue. There are no new spiculated masses nor malignant appearing microcalcification groups. Benign-appearing microcalcifications again noted bilaterally as well a prominent unchanged calcification in the right breast. There is no significant architectural distortion nor skin thickening-retraction. IMPRESSION: No radiographic evidence of malignancy. BI-RADS Category 1 - Negative Breast Density - Category A - The breast are almost entirely fatty. Breast density Category C or D implies that the patient has dense breast tissue. Dense breast tissue can make it harder to find cancer on a mammogram. Dense breast tissue is also associated with an increased risk of breast cancer. This information about the result of the mammogram report was provided to the patient to raise their awareness. Use this report when you speak with the patient about their risks for breast cancer, which includes their family history. At that time, you may recommend additional screening tests (Ultrasound or MRI) as these tests may add significant information. A negative radiographic report should not delay biopsy if a dominant or clinically suspicious mass is present. Up to ten percent of cancers are not identified on mammography. A negative report may reinforce clinical impression. Adenosis and dense breasts may obscure an underlying neoplasm. False positive reports average 6 to 10%. Patient will receive a letter notifying them of these results.
== END ==
LOC: DI 00:59
PROVIDERS: PCP Nurse Practitioner Family; Visit Provider Family Medicine
DX: Z12.31 Encounter for screening mammogram for malignant neoplasm of breast (principal)
CPT/HCPCS: 77063; 77067